=== PATIENT | female | born 1985 | race Caucasian/White ===

== ENCOUNTER → 2021-12-08 | Outpatient (CLI) | payer OTHER ==
[2021-12-08 10:16] LABS: BASO # 0.03 K/mm3 (0.02-0.10); EOS # 0.18 K/mm3 (0.04-0.40); EOS % 2.1 % (1.0-5.0); HEMATOCRIT 38.7 % (37.0-47.0); HEMOGLOBIN 12.7 g/dL (12.5-16.0); LYMPH# 1.73 K/mm3 (1.50-4.00); MEAN CELL VOLUME 92 fl (78-100); MEAN CORPUSCULAR HEMOGLOBIN 30 pg (27-31); MEAN CORPUSCULAR HGB CONC 33 g/dL (33-37); MONO # 0.42 K/mm3 (0.20-0.80); NEU # 6.27 K/mm3 (1.40-6.50); PLATELET COUNT 323 K/mm3 (130-400); RED BLOOD COUNT 4.23 M/mm3 (4.10-5.30); WHITE BLOOD COUNT 8.6 K/mm3 (4.8-10.8)
[2021-12-08 10:20] LABS: ALBUMIN 4.8 g/dL (3.5-5.0); POTASSIUM 4.2 mmol/L (3.5-5.1)
[2021-12-08 10:21] LABS: CALCIUM 10.2 mg/dL (8.3-10.5)
[2021-12-08 10:22] LABS: TOTAL PROTEIN 7.9 g/dL (6.4-8.3)
[2021-12-08 10:24] LABS: TOTAL BILIRUBIN 0.3 mg/dL (0.2-1.2)
== END ==
LOC: LAB 09:35
PROVIDERS: Family Medicine
DX: Z00.00 Encounter for general adult medical examination without abnormal findings (principal); E78.5 Hyperlipidemia, unspecified; E66.9 Obesity, unspecified; G47.09 Other insomnia; G89.29 Other chronic pain; F41.1 Generalized anxiety disorder; E55.9 Vitamin D deficiency, unspecified; E03.9 Hypothyroidism, unspecified

== ENCOUNTER → 2021-12-09 | Outpatient (CLI) | payer OTHER | LOC: LAB 16:27 | DX: R73.9 Hyperglycemia, unspecified (principal) ==

== ENCOUNTER 2022-07-24 06:39 | Emergency (ER) | payer OTHER ==
[~2022-07-24] VITALS: Ht 167.6 cm; Wt 111.4 kg
[2022-07-24 07:14] LABS: URINE WBC 0 /hpf (0-3)
[2022-07-24 07:25] LABS: URINE APPEARANCE CLEAR; URINE BILIRUBIN NEGATIVE (NEGATIVE); URINE BLOOD NEGATIVE (NEGATIVE); URINE COLOR YELLOW; URINE GLUCOSE NEGATIVE (NEGATIVE); URINE KETONE NEGATIVE (NEGATIVE); URINE LEUKOCYTE ESTERASE NEGATIVE (NEGATIVE); URINE NITRATE NEGATIVE (NEGATIVE); URINE PROTEIN(semi-quant) TRACE (NEGATIVE); URINE UROBILINOGEN NORMAL (NORMAL)
[2022-07-24 07:31] LABS: BASO # 0.03 K/mm3 (0.02-0.10); EOS # 0.05 K/mm3 (0.04-0.40); EOS % 0.5 % (1.0-5.0); HEMATOCRIT 39.2 % (37.0-47.0); HEMOGLOBIN 13.2 g/dL (12.5-16.0); LYMPH# 1.24 K/mm3 (1.50-4.00); MEAN CELL VOLUME 90 fl (78-100); MEAN CORPUSCULAR HEMOGLOBIN 30 pg (27-31); MEAN CORPUSCULAR HGB CONC 34 g/dL (33-37); MEAN PLATELET VOLUME 9.7 fl (7.4-10.4); MONO # 0.45 K/mm3 (0.20-0.80); NEU # 7.81 K/mm3 (1.40-6.50); PLATELET COUNT 354 K/mm3 (130-400); RED BLOOD COUNT 4.34 M/mm3 (4.10-5.30); RED CELL DISTRIBUTION WIDTH 12.9 % (11.5-14.5); WHITE BLOOD COUNT 9.6 K/mm3 (4.8-10.8)
[2022-07-24] MEDS ORDERED: DESYREL50 MG PO (07:42)
[2022-07-24] MEDS ORDERED: LISINOPRIL10 MG PO (07:42)
[2022-07-24] MEDS ORDERED: QUETIAPINE FUM300 MG PO (07:42)
[2022-07-24 07:43] LABS: ALBUMIN 4.9 g/dL (3.5-5.0); POTASSIUM 3.8 mmol/L (3.5-5.1); SODIUM 133 mmol/L (136-145)
[2022-07-24 07:44] LABS: CALCIUM 9.9 mg/dL (8.3-10.5)
[2022-07-24 07:45] LABS: GLUCOSE 119 mg/dL (65-105)
[2022-07-24 07:46] LABS: CARBON DIOXIDE 22 mmol/L (22-29)
[2022-07-24 07:47] LABS: TOTAL BILIRUBIN 0.4 mg/dL (0.2-1.2)
[2022-07-24 07:50] LABS: AST-SGOT 25 U/L (5-34)
[2022-07-24 07:52] LABS: ALT/SGPT 24 U/L (0-55)
[2022-07-24 07:55] LABS: ALCOHOL IN-HOUSE < 10 mg/dL (<10)
[2022-07-25 08:59] VITALS: BP 116/77
== END 2022-07-25 09:49 ==
LOC: ED 06:39
PROVIDERS: Family Medicine; Nurse Practitioner
DX: F60.9 Personality disorder, unspecified (principal); I10 Essential (primary) hypertension; Z28.310 Unvaccinated for COVID-19; Z20.822 Contact with and (suspected) exposure to COVID-19; Z86.59 Personal history of other mental and behavioral disorders

== ENCOUNTER → 2024-07-19 | Outpatient (CLI) | payer OTHER ==
[~2024-07-19] MED LIST: DESYREL50 MG PO; LISINOPRIL10 MG PO; OLANZAPINE10 M3 PO; QUETIAPINE FUM300 MG PO; XANAX0.5 M1 PO
[2024-07-19 12:11] LABS: BASO # 0.01 K/mm3 (0.02-0.10); EOS # 0.09 K/mm3 (0.04-0.40); EOS % 1.7 % (1.0-5.0); HEMATOCRIT 38.7 % (37.0-47.0); HEMOGLOBIN 12.7 g/dL (12.5-16.0); LYMPH# 1.86 K/mm3 (1.50-4.00); MEAN CELL VOLUME 94 fl (78-100); MEAN CORPUSCULAR HEMOGLOBIN 31 pg (27-31); MEAN CORPUSCULAR HGB CONC 33 g/dL (33-37); MEAN PLATELET VOLUME 9.7 fl (7.4-10.4); MONO # 0.32 K/mm3 (0.20-0.80); PLATELET COUNT 304 K/mm3 (130-400); RED BLOOD COUNT 4.14 M/mm3 (4.10-5.30); RED CELL DISTRIBUTION WIDTH 12.2 % (11.5-14.5); WHITE BLOOD COUNT 5.2 K/mm3 (4.8-10.8)
[2024-07-19 12:18] LABS: ALBUMIN 4.7 g/dL (3.5-5.0)
[2024-07-19 12:19] LABS: CALCIUM 9.6 mg/dL (8.3-10.5)
[2024-07-19 12:20] LABS: TOTAL PROTEIN 7.3 g/dL (6.4-8.3)
[2024-07-19 12:22] LABS: TOTAL BILIRUBIN 0.3 mg/dL (0.2-1.2)
[2024-07-19 23:10] LABS: FOLLICLE STIMULATING HORMONE 3.2 mIU/mL (()); LUTENIZING HORMONE 5.6 mIU/mL (())
== END ==
LOC: LAB 11:56
PROVIDERS: Nurse Practitioner
DX: Z00.00 Encounter for general adult medical examination without abnormal findings (principal); Z13.220 Encounter for screening for lipoid disorders; Z78.0 Asymptomatic menopausal state

== ENCOUNTER → 2024-11-13 | Outpatient (CLI) | payer OTHER ==
[2024-11-13 10:49] LABS: BASO # 0.02 K/mm3 (0.02-0.10); EOS # 0.06 K/mm3 (0.04-0.40); EOS % 0.8 % (1.0-5.0); HEMATOCRIT 39.8 % (37.0-47.0); HEMOGLOBIN 12.8 g/dL (12.5-16.0); LYMPH# 1.86 K/mm3 (1.50-4.00); MEAN CELL VOLUME 94 fl (78-100); MEAN CORPUSCULAR HEMOGLOBIN 30 pg (27-31); MEAN CORPUSCULAR HGB CONC 32 g/dL (33-37); MEAN PLATELET VOLUME 9.4 fl (7.4-10.4); MONO # 0.42 K/mm3 (0.20-0.80); NEU # 5.13 K/mm3 (1.40-6.50); PLATELET COUNT 330 K/mm3 (130-400); RED BLOOD COUNT 4.25 M/mm3 (4.10-5.30); RED CELL DISTRIBUTION WIDTH 12.9 % (11.5-14.5); WHITE BLOOD COUNT 7.5 K/mm3 (4.8-10.8)
[2024-11-13 10:57] LABS: ALBUMIN 4.7 g/dL (3.5-5.0)
[2024-11-13 10:59] LABS: TOTAL PROTEIN 8.1 g/dL (6.4-8.3)
[2024-11-13 11:01] LABS: TOTAL BILIRUBIN 0.3 mg/dL (0.2-1.2)
[2024-11-14 07:40] LABS: LUTENIZING HORMONE 8.7 mIU/mL (()); PROGESTERONE 6.8 ng/mL (())
== END ==
LOC: LAB 10:33
PROVIDERS: Family Medicine
DX: I10 Essential (primary) hypertension (principal); N91.1 Secondary amenorrhea; E55.9 Vitamin D deficiency, unspecified; E78.5 Hyperlipidemia, unspecified